=== PATIENT | male | born 1990 | race African-American/Black ===

== ENCOUNTER 2020-10-04 07:59 | Outpatient (CLI) | payer OTHER, SELFPAY ==
--- NOTE | ~2020-10-04 | MR_ITS ---
EXAMINATION: MR shoulder RT wo con DATE: 10/04/2020 09:10 INDICATION: Right shoulder pain and weakness post trauma TECHNIQUE: Magnetic resonance imaging (MRI) of the right shoulder was performed without intravenous c ontrast. Sequences included axial PD-weighted FS FSE, coronal oblique PD-weighted FS FSE, coronal obl ique T2-weighted FS FSE, sagittal PD-weighted FS FSE, and sagittal T1-weighted SE. COMPARISON: None. FINDINGS: Coracoacromial arch: The acromion undersurface is curved in morphology (type II). The coracoacromial ligament is normal. M inimal acromioclavicular osteoarthritis. Rotator cuff: Supraspinatus tendinopathy without discrete tear. The infraspinatus, teres minor and subscapularis te ndons are normal. Normal rotator cuff muscle bulk and signal. Biceps tendon, glenoid labrum and glenohumeral cartilage: Long head of the biceps tendon is normal. There is a tear at the 12:00-10:00 position of the posterio r superior glenoid labrum. Glenohumeral cartilage is normal. Fluid: Physiologic amount of fluid in the glenohumeral joint and biceps tendon sheath. No loose osteochondra l bodies. Abnormal increased fluid signal in the subacromial/subdeltoid bursa to suggest bursitis. Bones: Normal marrow signal with no edema, fracture or pathologic marrow replacing process. IMPRESSION: 1. SLAP tear at the 10:00 to 2. Mild supraspinatus tendinopathy without discrete tear. 12:00 position of the posterior superior gl enoid labrum. Reviewed, dictated and finalized at location A. IMPRESSION: 1. SLAP tear at the 10:00 to 2. Mild supraspinatus tendinopathy without discrete tear. 12:00 position of the posterior superior glenoid labrum.
--- NOTE | ~2020-10-04 | MR_ITS ---
EXAMINATION: MR cervical spine wo con DATE: 10/04/2020 08:47 INDICATION: Right arm weakness and numbness. TECHNIQUE: Magnetic resonance imaging (MRI) of the cervical spine was performed without intravenous c ontrast. Sequences included sagittal T2-weighted FSE, sagittal STIR FSE, sagittal T1-weighted FSE, ax ial MERGE, and axial T2-weighted FSE. COMPARISON: CT cervical spine 05/28/2015 FINDINGS: There is 5 degrees levocurvature of cervical spine. There is hypolordosis of cervical spine . Vertebral body heights and intervertebral disc heights are normal. The spinal cord signal intensity is normal. The following disc levels are specifically discussed: C2-C3: The disc does not extend beyond the endplate margin. There is mild left uncovertebral joint os teoarthritis. There is no facet joint osteoarthritis. There is mild left neural foraminal stenosis. T here is no central canal stenosis. C3-C4: The disc does not extend beyond the endplate margin. There is no uncovertebral joint osteoarth ritis. There is mild bilateral facet joint osteoarthritis. There is no neural foraminal stenosis. The re is no central canal stenosis. C4-C5: The disc does not extend beyond the endplate margin. There is mild bilateral uncovertebral levy nt osteoarthritis. There is no facet joint osteoarthritis. There is no neural foraminal stenosis. The re is no central canal stenosis. C5-C6: There is a right central extrusion. There is no uncovertebral joint osteoarthritis. There is n o facet joint osteoarthritis. There is no neural foraminal stenosis. There is mild central canal sten osis with indentation of the right ventral spinal cord. C6-C7: The disc does not extend beyond the endplate margin. There is no uncovertebral joint osteoarth ritis. There is no facet joint osteoarthritis. There is no neural foraminal stenosis. There is no kun tral canal stenosis. C7-T1: The disc does not extend beyond the endplate margin. There is mild left uncovertebral joint os teoarthritis. There is mild bilateral facet joint osteoarthritis. There is no neural foraminal stenos is. There is no central canal stenosis. IMPRESSION: 1. Mild cervical spondylosis. Reviewed, dictated and finalized at location A.
== END 2020-10-04 08:00 | disposition home or self-care (01) ==
LOC: ANHIMG 08:08
PROVIDERS: Visit Provider Orthopaedic Surgery
DX: M47.22 Other spondylosis with radiculopathy, cervical region (principal); S43.431A Superior glenoid labrum lesion of right shoulder, initial encounter; X58.XXXA Exposure to other specified factors, initial encounter
CPT/HCPCS: 72141; 73221